=== PATIENT | male | born 1995 | race Two or more races ===

== ENCOUNTER 2016-08-17 00:17 | Emergency (ER) | payer BC, MEDICAID ==
[~2016-08-17] VITALS: Ht 177.8 cm; Wt 158.8 kg
[2016-08-17 01:07] LABS: Basophils # (auto) 0.1 uL; Basophils % (auto) 0.8 % (0.0-2.0); Eosinophils # (auto) 0.2 uL; Eosinophils % (auto) 1.9 % (0.0-7.0); Hematocrit 47.4 % (41.0-53.0); Hemoglobin 15.5 g/dL (13.5-17.5); Lymphocytes # (auto) 2.6 uL; Lymphocytes % (auto) 23.4 % (10.0-50.0); Mean Corpuscular Hemoglobin 29.9 pg (28.0-32.0); Mean Corpuscular Hgb Conc. 32.8 g/dL (32.0-36.0); Mean Corpuscular Volume 91.1 fL (80.0-100.0); Mean Platelet Volume 8.1 fL (7.4-10.4); Monocytes % (auto) 8.9 % (0.0-12.0); Neutrophils # (auto) 7.1 uL; Platelet Count (auto) 257 10^3/uL (140-450); Red Cell Distribution Width 12.7 % (11.6-16.0)
[2016-08-17 01:29] LABS: Salicylate < 1.7 mg/dL (2.8-20.0)
[2016-08-17 01:30] LABS: Albumin 3.7 g/dL (3.4-5.0); BUN/Creatinine Ratio 8.5
[2016-08-17 01:31] LABS: Acetaminophen < 2.0 ug/mL (10-30)
[2016-08-17 01:32] LABS: Bilirubin, Total 0.3 mg/dL (0.2-1.0); Total Protein 7.3 g/dL (6.4-8.2)
[2016-08-17 03:02] LABS: Urine Bilirubin Negative (Negative); Urine Blood 1+ /uL (Negative); Urine Color Yellow (Yellow); Urine Glucose Normal (Normal); Urine Ketone Negative (Negative); Urine Nitrite Negative (Negative); Urine RBC <1 /hpf (0 - 3); Urine Urobilinogen Normal (Negative); Urine pH 5.5 (5.0-8.0)
[2016-08-17] MEDS ORDERED: TETANUS-DIPTH-ACEL PERTUSSIS 0.5ML SYRG IM ONE (07:45)
[2016-08-18 01:24] VITALS: BP 145/90
== END 2016-08-18 01:31 | disposition short-term general hospital (02) ==
LOC: EDBD 00:17 → ER 00:18
DX: S60.221A Contusion of right hand, initial encounter (principal); F32.9 Major depressive disorder, single episode, unspecified; R45.851 Suicidal ideations; Z23 Encounter for immunization; X58.XXXA Exposure to other specified factors, initial encounter; Y93.89 Activity, other specified; Y99.8 Other external cause status; Y92.89 Other specified places as the place of occurrence of the external cause
CPT/HCPCS: 36415; 73120; 80053; 80307; 80329; 81001; 85025; 90471; 90715

== ENCOUNTER 2019-03-27 16:05 | Emergency (ER) | payer BC, OTHER ==
[~2019-03-27] VITALS: Ht 182.9 cm; Wt 158.8 kg
[2019-03-27 16:18] VITALS: BP 137/55
[2019-03-27] MEDS ORDERED: IBUPROFEN 800 MG TAB PO ONE (17:30)
== END 2019-03-27 17:41 | disposition home or self-care (01) ==
LOC: ER 16:05 → EDBD 16:05 → ER 17:41
DX: S93.402A Sprain of unspecified ligament of left ankle, initial encounter (principal); W11.XXXA Fall on and from ladder, initial encounter; Y93.89 Activity, other specified; Y99.8 Other external cause status; Y92.89 Other specified places as the place of occurrence of the external cause
CPT/HCPCS: 73610